=== PATIENT | female | born 1940 | race Caucasian/White ===

== ENCOUNTER 2019-12-17 08:20 | Inpatient (IN) ==
[2019-12-17] MEDS ORDERED: PREDNISONE PO ONE (08:46)
[2019-12-17] MEDS ORDERED: CATAPRES PO ONE (08:47)
[2019-12-17] MEDS ORDERED: LABETALOL IV ONE (08:47)
--- NOTE | 2019-12-17 08:51 | PROVIDER DOCUMENTATION ---
HPI-Respiratory General - General Stated Complaint: sob Time Seen by Provider: 12/17/19 08:41 Source: patient, old records ((none here)) Allergies/Adverse Reactions: Patient Allergies Allergy/AdvReac Type Severity Reaction Status Date / Time Tetracyclines Allergy RASH Verified 12/17/19 09:22 Home Medications: Home Medication List Medication Instructions Recorded Confirmed Last Taken Type LISINOpril [Prinivil] 20 mg PO DAILY 12/17/19 12/17/19 12/14/19 History - History of Present Illness-Resp Nature of Presenting Problem: pt w/ hx of COPD and ~90 pack-yrs tobacco use (ongoing) cc: SOB. she denies fever, sputum, CP. she is no no resp meds at home. hx of HBP on "low dose" Lisinopril. Review of Systems - Adult - REVIEW OF SYSTEMS - ADULT Constitutional: reports: no symptoms reported Eyes: reports: no symptoms reported Ears, Nose, Mouth & Throat: reports: no symptoms reported Cardiovascular: reports: no symptoms reported Respiratory: reports: see HPI Gastrointestinal: reports: no symptoms reported Genitourinary: reports: no symptoms reported Musculoskeletal: reports: no symptoms reported Integumentary: reports: no symptoms reported Neurological: reports: no symptoms reported Psychiatric: reports: no symptoms reported Endocrine: reports: no symptoms reported Hematologic/Lymphatic: reports: no symptoms reported Allergic/Immunologic: reports: no symptoms reported All Other Systems: Reviewed and Negative Past History - Adult - PAST MEDICAL HISTORY-ADULT Review of Records: reports: Old Records Reviewed Cardiovascular: reports: HTN Respiratory: reports: COPD Physical Exam-General - PHYSICAL EXAM-ADULT Initial Vital Signs Reviewed: Yes - CONSTITUTIONAL General Appearance: alert, no apparent distress - EYES Eyes: PERRL/EOMI, pink conjunctivae - HEAD, EARS, NOSE, MOUTH & THROAT HENMT: normal ENT inspection - NECK Neck: supple - RESPIRATORY Respiratory: decreased breath sounds, rhonchi (faint, symmetric). 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, grossly normal, no motor/sensory deficits - PSYCHIATRIC Psych/Mental Status: normal mood/affect, normal thought content, oriented x 3 Progress - PLAN OF CARE/RESULTS Progress/Plan/Lab Results: Vital Signs - 8 hr 12/17/19 08:29 12/17/19 09:09 12/17/19 09:49 Temperature 97.6 F 98.8 F Pulse Rate 84 87 68 Respiratory Rate 23 18 20 Blood Pressure 234/114 205/101 165/79 O2 Sat by Pulse Oximetry 97 97 96 12/17/19 12:02 Temperature Pulse Rate 67 Respiratory Rate 20 Blood Pressure 174/97 O2 Sat by Pulse Oximetry 95 Laboratory Results - last 24 hr 12/17/19 12/17/19 12/17/19 09:33 09:33 09:33 WBC 9.14 RBC 5.23 Hgb 14.8 Hct 45.6 MCV 87.2 MCH 28.3 MCHC 32.5 L RDW Std Deviation 14.3 Plt Count 244 MPV 10.6 H Immature Gran % (Auto) 0.2 Neut % (Auto) 78.3 H Lymph % (Auto) 12.4 L [place] % (Auto) 7.8 Eos % (Auto) 1.0 Baso % (Auto) 0.3 Immature Gran # (Auto) 0.02 Neut # (Auto) 7.16 H Lymph # (Auto) 1.13 L [place] # (Auto) 0.71 H Eos # (Auto) 0.09 Baso # (Auto) 0.03 Sodium 143 Potassium 4.1 Chloride 104 Carbon Dioxide 26 Anion Gap 13 BUN 14 Creatinine 0.6 Estimated GFR/1.73 m2 > 60 BUN/Creatinine Ratio 23 Glucose 147 H Calculated Osmolality 288 Calcium 9.3 Total Bilirubin 0.33 AST 19 ALT 21 Alkaline Phosphatase 99 Troponin T High Sens 11 Qbw-J-Eflycrlyjai Pept Total Protein 7.1 Albumin 4.0 Globulin 3.1 Albumin/Globulin Ratio 1.3 12/17/19 09:33 WBC RBC Hgb Hct MCV MCH MCHC RDW Std Deviation Plt Count MPV Immature Gran % (Auto) Neut % (Auto) Lymph % (Auto) [place] % (Auto) Eos % (Auto) Baso % (Auto) Immature Gran # (Auto) Neut # (Auto) Lymph # (Auto) [place] # (Auto) Eos # (Auto) Baso # (Auto) Sodium Potassium Chloride Carbon Dioxide Anion Gap BUN Creatinine Estimated GFR/1.73 m2 BUN/Creatinine Ratio Glucose Calculated Osmolality Calcium Total Bilirubin AST ALT Alkaline Phosphatase Troponin T High Sens Adf-R-Mbtwjydchfu Pept 1759 H Total Protein Albumin Globulin Albumin/Globulin Ratio Orders Category Date Time Status Nursing- Obtain EKG ONCE Care 12/17/19 08:47 Active CHEST-1 VIEW [RAD] Stat Exams 12/17/19 08:47 Completed CBC WITH DIFF [HEME] Stat Lab 12/17/19 09:33 Completed COMPREHENSIVE METABOLIC PANEL [CHEM] Stat Lab 12/17/19 09:33 Completed PRO B-NATRIURETIC PEPTIDE Stat Lab 12/17/19 09:33 Completed TROPONIN T HIGH SENSITIVITY Stat Lab 12/17/19 09:33 Completed Clonidine [Catapres] Med 12/17/19 08:47 Discontinued 0.1 mg PO NOW ONE Furosemide [Lasix] Med 12/17/19 10:27 Discontinued 40 mg IV NOW ONE Labetalol Med 12/17/19 08:47 Discontinued 20 mg IV NOW ONE Prednisone Med 12/17/19 08:46 Discontinued 40 mg PO NOW ONE EKG [EKG] Stat Ther 12/17/19 08:47 Ordered Result Diagrams: 12/17/19 09:33 12/17/19 09:33 - REASSESSMENT Reassessment #2 Time Reassessed: 12:02 Status: improving (pt is stable and air movement improved, comfortable at rest however severe LÓPEZ. imaging shows pulm edema, BNP pending: plan to admit for CHF/cor pulmonale evaluation, further tx of resp distress.) - EKG 1 Time of EKG reading by physician:: 12:09 EKG Interpretation (*Must complete 3 of following elements*): Abnormal Rate: 63 Rhythm: NSR [place]: left QRS: LVH (strain pattern) - CONSULTS/PCP/HOSPITALIST Notification #1 *Consult/PCP/Hospitalist*: Zelda Time Discussed: 13:53 Consult Disposition: Admit Departure - Departure Date of Disposition Decision: 12/17/19 Time of Disposition Decision: 14:00 DIAGNOSIS: CHF (congestive heart failure), Cor pulmonale, acute Disposition: ADMITTED INPATIENT 09 Certified Medical Emergency: Emergent Condition: Stable Referrals and Follow-Ups: RENATA BROCK CRNP [Primary Care Provider] - - Critical Care Note This patient required my direct & personal management of CC.: No Attestation - Physician/ LORE Attestation The physician spent face to face time with patient:: Yes Advanced Practice Provider documentation review:: Supervising physician onsite and consulted in the evaluation and care of this patient. The physician did have a face to face encounter with the patient.
[2019-12-17 09:45] LABS: BASO# 0.03 X1000 (0.0-0.2); BASO% 0.3 % (0.0-0.8); EOS# 0.09 X1000 (0.0-0.7); HEMATOCRIT 45.6 % (37.0-47.0); HEMOGLOBIN 14.8 g/dL (12.0-16.0); IMM GRAN# 0.02 X1000 (0.0-0.04); IMM GRAN% 0.2 % (0.0-0.5); LYMPH# 1.13 X1000 (1.2-3.4); LYMPH% 12.4 % (20.5-51.1); MCH 28.3 PG (27-31); MCHC 32.5 g/dL (33-37); MCV 87.2 FL (81-99); MONO# 0.71 X1000 (0.11-0.59); MONO% 7.8 % (1.7-9.3); MPV 10.6 FL (7.4-10.4); NEUT# 7.16 X1000 (1.4-6.5); NEUT% 78.3 % (42.2-75.2); PLT 244 X1000 (130-400); RBC 5.23 XMIL (4.2-5.4); RDW 14.3 % (11.5-14.5); WBC 9.14 X1000 (4.8-10.8)
--- NOTE | 2019-12-17 09:58 | Diag Imaging Result Doc PS360 ---
EXAM: CHEST-1 VIEW HISTORY: COPD/dyspnea TECHNIQUE: Single view COMPARISON: None. FINDINGS: The lungs are well expanded. The heart is enlarged. There is pulmonary edema. No consolidation. No pleural effusions identified. IMPRESSION: Cardiomegaly with pulmonary edema Electronically signed by Carmine Marroquin 12/17/2019 9:56 AM
[2019-12-17 10:04] LABS: AGAP 13; ALB/GLOB RATIO 1.3; ALKALINE PHOSPHATASE 99 U/L (32-104); BUN 14 mg/dL (8-22); CALCIUM 9.3 mg/dL (8.8-10.2); CHLORIDE 104 mmol/L (98-107); COSMO 288; CREATININE 0.6 mg/dL (0.5-0.9); ESTIMATED GFR > 60; GLUCOSE 147 mg/dL (70-104); GOT 19 U/L (10-30); GPT 21 U/L (10-36); POTASSIUM 4.1 mmol/L (3.5-5.1); SODIUM 143 mmol/L (136-145); TCO2 26 mmol/L (25-35); TOTAL BILIRUBIN 0.33 mg/dL (0.20-1.00); TOTAL PROTEIN 7.1 g/dL (6.3-8.3)
[2019-12-17] MEDS ORDERED: LASIX IV ONE (10:27)
[2019-12-17] MEDS ORDERED: TYLENOL PO PRN (14:58)
[2019-12-17] MEDS ORDERED: ZOFRAN IV PRN (14:58)
[2019-12-17] MEDS: DUONEB (A & A) INH SCH ×2 (15:14→22:06)
--- NOTE | 2019-12-17 15:30 | HISTORY AND PHYSICAL ---
HISTORY OF PRESENT ILLNESS: Ms. Gaffney says she has had a greater than 90 pack-year history of tobacco, but has just not felt real good in the last week or two. This morning when she woke up, she noted marked dyspnea just trying to go to the restroom. She denies fever or chills. No sputum production. No chest pain. She had a little pleuritic discomfort when she would cough in her left shoulder. Denies any palpitations. Only medical illness she knows of is hypertension. She is on lisinopril. She did start taking some guaifenesin, a little sinus congestion in the last couple days. She has supposedly a history of COPD. SURGICAL HISTORY: She has had carpal tunnel repair on the right, left orbital fracture repair on her left eye. She has been seeing Dr. Holley recently about her right knee. It has been quite swollen and she has been taking quite a bit of Advil, and nonsteroidal anti-inflammatories. REVIEW OF SYSTEMS: General: No weight gain or loss. No fever or chills. HEENT: No change in hearing or visual acuity. Respiratory: As above, increased dyspnea with exertion, which is fairly sudden onset this morning. No pleuritic pain except her left shoulder. Cardiovascular: No chest pain or tachy palpitation. GI and : No change in her bowels or urinary performance Endocrinologic/Hematologic: No significant history. Musculoskeletal/Neurologic: Right knee soreness and swelling. FAMILY HISTORY: Positive for mother I think had congestive heart failure and COPD and father I think had COPD and diabetes as well and some heart disease. SOCIAL HISTORY: She does smoke greater than a pack a day greater than 90 pack year history of smoking. No alcohol. No illicit drugs by her report. PHYSICAL EXAMINATION: GENERAL: She is awake, alert, and pleasant, oriented x3. VITAL SIGNS: Temperature 98.8 degrees, pulse 67, respirations 20, blood pressure 174/97. Height 5 feet 2 inches, weight 175 pounds. HEENT: Pupils are equal and round. LUNGS: Clear in all lung rucker with diminished breath sounds in both bases. I do not appreciate wheezing at this time. CVP appears to be less than 10 cm. No distended neck veins appreciated. CARDIOVASCULAR: Regular rhythm and rate without murmur or S3. PMI nondisplaced. Carotid, radial, and femoral pulses 2+ and symmetrical. ABDOMEN: Soft. SKIN: Warm and dry. EXTREMITIES: No pedal edema appreciated on exam. NECK: Supple. No adenopathy or thyromegaly. LABORATORY: White blood cell count 9140, hematocrit 45, platelet count 244,000. Sodium 143, potassium 4.1, chloride 104, BUN 14, creatinine 0.6, calcium 9.3, albumin 4.0. Chest x-ray: Cardiomegaly with pulmonary edema appreciated. No sign of consolidation or effusions. ASSESSMENT AND PLAN: 1. Suspect underlying chronic obstructive pulmonary disease with some pulmonary venous hypertension. I suspect this may be diastolic dysfunction or congestive heart failure with normal ejection fraction, but we will check an echocardiogram to look at her left ventricular performance. I do not hear on exam any sign of valvular dysfunction, so we will look at her valves as well. She was given some Lasix in the emergency room. We will continue Prinivil and probably increase it to 20 mg twice a day based on her blood pressures here in the emergency room. Renal function looks good with creatinine of 0.6. Electrolytes look good. I am going to check her T4, TSH, B12, and folate. Will check a proBNP which her baseline is 1759. Her troponin is low, CK is low. I do not see any sign of pneumonia or infection. Will not put her on antibiotics at this point. 2. Hypertension. Increase her lisinopril. Give her some supplementary O2. Will give her some bronchodilators including DuoNeb and put her on Symbicort, steroid inhaler with a long-acting beta agonist. cc: Dmitry Castillo MD
--- NOTE | 2019-12-17 18:33 | EKG Report ---
Test Performed on : 12/17/2019 11:58:32 AM Test Reason : dyspnea Blood Pressure : / mmHG Vent. Rate : 063 BPM Atrial Rate : 063 BPM P-R Int : 154 ms QRS Dur : 094 ms QT Int : 454 ms P-R-T Axes : 048 -09 123 degrees QTc Int : 464 ms Normal sinus rhythm. Possible Left atrial enlargement Left ventricular hypertrophy with repolarization abnormality Abnormal ECG No previous ECGs available Unconfirmed Result
[2019-12-17] MEDS: SYMBICORT 80/4.5 MICROGM INHALER INH SCH (19:51)
[2019-12-17] MEDS ORDERED: PRINIVIL PO SCH (21:00)
[2019-12-17] MEDS ORDERED: LASIX IV SCH (22:00)
[2019-12-18] MEDS: DUONEB (A & A) INH SCH ×3 (04:14→11:14)
[2019-12-18 07:00] LABS: BASO# 0.02 X1000 (0.0-0.2); BASO% 0.2 % (0.0-0.8); HEMATOCRIT 41.1 % (37.0-47.0); HEMOGLOBIN 13.2 g/dL (12.0-16.0); IMM GRAN# 0.03 X1000 (0.0-0.04); IMM GRAN% 0.3 % (0.0-0.5); LYMPH# 1.75 X1000 (1.2-3.4); LYMPH% 16.7 % (20.5-51.1); MCH 28.4 PG (27-31); MCHC 32.1 g/dL (33-37); MCV 88.4 FL (81-99); MONO# 0.88 X1000 (0.11-0.59); MONO% 8.4 % (1.7-9.3); MPV 10.8 FL (7.4-10.4); NEUT# 7.68 X1000 (1.4-6.5); NEUT% 73.4 % (42.2-75.2); PLT 239 X1000 (130-400); RBC 4.65 XMIL (4.2-5.4); RDW 14.3 % (11.5-14.5); WBC 10.46 X1000 (4.8-10.8)
[2019-12-18 07:18] LABS: AGAP 11; ALB/GLOB RATIO 1.3; ALBUMIN 3.8 g/dL (3.5-5.0); ALKALINE PHOSPHATASE 85 U/L (32-104); BUN 22 mg/dL (8-22); CALCIUM 9.2 mg/dL (8.8-10.2); CHLORIDE 98 mmol/L (98-107); COSMO 276; CREATININE 0.7 mg/dL (0.5-0.9); ESTIMATED GFR > 60; GLUCOSE 139 mg/dL (70-104); GOT 15 U/L (10-30); GPT 17 U/L (10-36); MAGNESIUM 2.1 mg/dL (1.5-2.7); POTASSIUM 3.5 mmol/L (3.5-5.1); SODIUM 135 mmol/L (136-145); TCO2 26 mmol/L (25-35); TOTAL PROTEIN 6.7 g/dL (6.3-8.3)
[2019-12-18] MEDS: LOVENOX SUBQ SCH (08:03)
[2019-12-18] MEDS ORDERED: PRINIVIL PO SCH (09:00)
[2019-12-18] MEDS: SYMBICORT 80/4.5 MICROGM INHALER INH SCH ×2 (11:14→20:03)
[2019-12-18] MEDS: PRINIVIL PO SCH ×2 (12:28→20:42)
--- NOTE | 2019-12-18 12:40 | PROGRESS NOTE ---
DATE: 12/18/2019 SUBJECTIVE: She was admitted yesterday. She is followed by HANNAH Cleary. Ms. Gaffney says she has a greater than [id number] history of tobacco, and noticed some shortness of breath that came on fairly sudden. She had pulmonary venous hypertension on admission. She said the albuterol kind of makes her feel jittery, and she does not like those treatments. OBJECTIVE: Vital Signs: Temp 98 degrees, pulse 68, respirations 19, blood pressure 154/76. Last several blood pressures were 168/76, 153/71, 154/76. Lungs: Clear anterolateral and posterior. General: She is sitting up at the edge of bed, said she is breathing well, and she has been feeling well since yesterday evening. Her urine output was 600 mL. IMAGING AND LABORATORY DATA: This morning, white count 10,460, hematocrit 41, platelet count 239,000. Sodium 135, potassium 3.5, chloride 98, BUN 22, creatinine 0.7. T4 was 0.95, and TSH was 1.18. ProBNP was 1759 when she came in. Her chest x-ray showed cardiomegaly with some pulmonary edema. PLAN: She appears to be improving. I will stop her albuterol treatments, and will continue the budesonide for now. She should be getting Prinivil 20 mg twice a day, and she received some Lasix yesterday. Will put her on p.o. Lasix 40 mg every a.m., give her 1 dose now. Hopefully, she can go home tomorrow. Will recheck her magnesium and electrolytes in the morning, and recheck a proBNP. cc: Dmitry Castillo MD
[2019-12-18] MEDS: LASIX PO SCH (12:49)
--- NOTE | 2019-12-18 19:05 | EKG Report ---
Test Performed on : 12/18/2019 06:28:35 AM Test Reason : chest pain Blood Pressure : / mmHG Vent. Rate : 063 BPM Atrial Rate : 063 BPM P-R Int : 168 ms QRS Dur : 104 ms QT Int : 436 ms P-R-T Axes : 047 024 184 degrees QTc Int : 446 ms Normal sinus rhythm. Anterior infarct , age undetermined Abnormal ECG When compared with ECG of 17-DEC-2019 11:58, (Unconfirmed) Nonspecific T wave abnormality now evident in Inferior leads Nonspecific T wave abnormality, worse in Lateral leads Unconfirmed Result
[2019-12-19 07:42] LABS: BASO# 0.04 X1000 (0.0-0.2); BASO% 0.5 % (0.0-0.8); EOS% 2.7 % (0.0-10.0); HEMATOCRIT 42.6 % (37.0-47.0); HEMOGLOBIN 13.5 g/dL (12.0-16.0); IMM GRAN# 0.02 X1000 (0.0-0.04); IMM GRAN% 0.3 % (0.0-0.5); LYMPH# 1.48 X1000 (1.2-3.4); MCH 28.2 PG (27-31); MCHC 31.7 g/dL (33-37); MCV 88.9 FL (81-99); MONO# 0.63 X1000 (0.11-0.59); MONO% 8.5 % (1.7-9.3); MPV 10.4 FL (7.4-10.4); NEUT# 5.03 X1000 (1.4-6.5); PLT 233 X1000 (130-400); RBC 4.79 XMIL (4.2-5.4); RDW 14.5 % (11.5-14.5)
[2019-12-19] MEDS: LOVENOX SUBQ SCH (08:00)
[2019-12-19] MEDS: SYMBICORT 80/4.5 MICROGM INHALER INH SCH (08:00)
[2019-12-19] MEDS: PRINIVIL PO SCH (08:00)
[2019-12-19] MEDS: LASIX PO SCH (08:00)
[2019-12-19 08:16] LABS: AGAP 13; ALB/GLOB RATIO 1.1; ALBUMIN 3.6 g/dL (3.5-5.0); ALKALINE PHOSPHATASE 82 U/L (32-104); BUN 21 mg/dL (8-22); CHLORIDE 100 mmol/L (98-107); COSMO 282; CREATININE 0.7 mg/dL (0.5-0.9); ESTIMATED GFR > 60; GLUCOSE 128 mg/dL (70-104); GOT 20 U/L (10-30); GPT 19 U/L (10-36); POTASSIUM 4.2 mmol/L (3.5-5.1); SODIUM 139 mmol/L (136-145); TCO2 26 mmol/L (25-35); TOTAL BILIRUBIN 0.32 mg/dL (0.20-1.00); TOTAL PROTEIN 6.9 g/dL (6.3-8.3)
--- NOTE | 2019-12-19 09:28 | Diag Imaging Result Doc PS360 ---
EXAM: CHEST-2 VIEWS INDICATION: chf TECHNIQUE: 2 views COMPARISON: 12/17/2019 FINDINGS: There has been some improvement in the mild pulmonary edema and pulmonary venous congestion seen previously. No new consolidation is appreciated. There is stable cardiomegaly. IMPRESSION: Interval improvement of mild pulmonary edema seen previously. Electronically signed by José Miguel Edwards 12/19/2019 9:26 AM
--- NOTE | 2019-12-19 10:36 | DISCHARGE SUMMARY ---
ADMISSION DATE: 12/17/2019 DISCHARGE DATE: 12/19/2019 HISTORY OF PRESENT ILLNESS: This is a 79-year-old who is followed by HANNAH Stanley. Said that she has a greater than 90 pack-year history of tobacco, a history of hypertension. Apparently woke up, especially her early this morning, with remarkable shortness of breath. She has had some trouble off and on the last couple days. Denies fever, chills, or pleuritic pain, or productive sputum. Radiographically and on clinical exam, it looked like she had some mild pulmonary venous hypertension. PAST MEDICAL HISTORY: Includes carpal tunnel repair on the right, left orbital fracture repair in the left eye, and she is being seen by Dr. Holley for some swelling in her right knee. HOSPITAL COURSE: We diuresed her and her blood pressure was a little high so we increased her lisinopril. Chest x-ray showed interval improvement in pulmonary venous hypertension. Of course, she really wanted to go home. EKG was normal. No sign of ST-segment changes. Encouraged her to pursue tobacco cessation. We will let her go home on lisinopril 20 mg twice a day, Lasix 40 mg once every morning. I am not putting her on a bronchodilator at this point. I did give her some nicotine patches and encouraged her to use Tylenol if she has arthritic pain. She was previously taking lisinopril/hydrochlorothiazide 20/12.5 just one a day. She will follow up with her HANNAH. cc: Dmitry Castillo MD
[2019-12-19 11:05] VITALS: BP 152/66
--- NOTE | 2019-12-19 17:10 | ECHO REPORT ---
ORDER DATE: 12/17/2019 INTERPRETING PHYSICIAN: Gold Ibrahim MD. CLINICAL INDICATIONS: Shortness of breath. M-MODE MEASUREMENTS: Left ventricle end diastole: 5.6 cm. Left ventricle end systole: 4.8 cm. Posterior wall: 1.1 cm. Interventricular septum: 1.2 cm. Left atrium: 4.2 cm. Aortic diameter: 2.5 cm. SUMMARY OF 2-DIMENSIONAL IMAGIN. The left ventricular function appears to be at the lower limits of normal. Ejection fraction is estimated at 55%. There appears to be some hypokinesis of the interventricular septum in its inferior aspect. 2. The aortic valve looks grossly normal. Color flow mapping unremarkable. 3. The mitral valve appears to be grossly normal. Color flow mapping shows severe degree of regurgitation. 4. Pulse wave Doppler of mitral inflow shows normal E/A ratio. 5. The tissue Doppler of septal and lateral mitral annulus averages 6 cm. 6. There is impaired left ventricular relaxation. 7. The tricuspid valve shows mild to moderate degree of regurgitation. 8. The pulmonic valve looks normal. Pulmonary pressure is estimated at 32 to 37 mmHg. The pulmonic valve is unremarkable. 9. There is no pericardial effusion, masses or thrombus. CONCLUSIONS: In summary this study shows 1. Left ventricular systolic function at the lower limits of normal with questionable hypokinesis of the inferior wall and inferior interventricular septum. 2. Severe degree of mitral regurgitation. 3. Impaired left ventricular relaxation. 4. Pulmonary pressure is estimated at 32 mmHg. 5. There is a mild degree of tricuspid regurgitation. Clinical correlation is recommended. cc: MD Zelda Fang CRNP
== END 2019-12-19 12:30 | disposition home or self-care (01) | DRG 314 ==
LOC: SUPCPDRO → ED 08:20 → 3N 15:05
PROVIDERS: ATTEND Emergency Medicine